=== PATIENT | female | born 1975 | race Caucasian/White ===

== ENCOUNTER 2020-11-04 09:41 | Emergency (ER) | payer SELFPAY ==
[~2020-11-04] VITALS: Ht 162.6 cm; Wt 83.0 kg
[2020-11-04 09:45] VITALS: Ht 162.6 cm; Wt 83.0 kg
[2020-11-04 11:03] VITALS: BP 106/56
== END 2020-11-04 11:34 | disposition home or self-care (01) ==
LOC: ED 09:41
DX: G44.209 Tension-type headache, unspecified, not intractable (principal); Z88.6 Allergy status to analgesic agent
CPT/HCPCS: J1885; J2765; J7030; U0003